=== PATIENT | male | born 1965 | race Caucasian/White ===

== ENCOUNTER 2019-12-26 07:29 | Outpatient (CLI) | payer OTHER, SELFPAY ==
--- NOTE | ~2019-12-26 | CT_ITS ---
EXAMINATION: CT abdomen pelvis w con DATE: 12/26/2019 08:30 INDICATION: Mid and upper abdominal pain. Nausea and vomiting. Acute pancreatitis. TECHNIQUE: Computed tomography (CT) of the abdomen and pelvis was performed with 100 mL Omnipaque 350 intravenous contrast. Automated exposure control and iterative reconstruction technique were employe d. The dose-length product was 1547.81 mGy-cm. COMPARISON: None. FINDINGS: The visualized portions of the lung bases are clear without pneumonia or pleural effusion. The heart size is normal. No pericardial effusion. There are coronary artery calcifications. The live r, gallbladder, and right adrenal gland are normal. There is a 2.6 cm mass in left adrenal gland lauren uring soft tissue attenuation. 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 There is fat stranding around the pancreas. There is a 2.4 x 1.5 cm fluid collection adjacent t o the body of the pancreas. There are calcifications in the uncinate process the pancreas. There are cysts in the kidneys measuring up to 1.6 cm on the left. There is prominent fat in the inguinal canal s that may be small hernias. There are surgical changes of the stomach. There are no dilated loops of bowel. The appendix is normal. There are no pathologically enlarged lymph nodes. There is no free in traperitoneal fluid. There is mild thoracolumbar spondylosis. There is mild chronic anterior wedging of T11 vertebral body. IMPRESSION: 1. Acute interstitial pancreatitis superimposed on chronic pancreatitis. A 2.4 x 1.5 cm fluid collect ion adjacent to the body of the pancreas may be an acute necrotic collection or pseudocyst. 2. 2.6 cm left adrenal mass. In the absence of known malignancy, this finding is likely an adenoma. Reviewed, dictated and finalized at location A. IMPRESSION: 1. Acute interstitial pancreatitis superimposed on chronic pancreatitis. A 2.4 x 1.5 cm fluid collection adjacent to the body of the pancreas may be an acute necrotic collection or pseudocyst. 2. 2.6 cm left adrenal mass. In the absence of known malignancy, this finding i s likely an adenoma.
[2019-12-26 07:56] LABS: Estimated Glomerular Filt Rate > 60
== END 2019-12-26 07:30 | disposition home or self-care (01) ==
PROVIDERS: PCP Internal Medicine; Visit Provider Internal Medicine
DX: K85.90 Acute pancreatitis without necrosis or infection, unspecified (principal)
CPT/HCPCS: 74177; Q9965

== ENCOUNTER 2021-07-16 08:57 | Emergency (ER) | payer OTHER, SELFPAY ==
--- NOTE | 2021-07-16 08:57 | ED.SKABFB ---
HPI - Skin/Abscess/Foreign Bdy General Chief complaint: Skin/Abscess/Foreign Body Stated complaint: Rash Time Seen by Provider: 07/16/21 08:57 Source: patient Mode of arrival: ambulatory Limitations: no limitations History of Present Illness HPI narrative: Mr. Suggs is a 56-year-old male patient presenting to the clinic today with complaints of rash to his face and left arm. He reports this rash began yesterday around 2 PM where he noticed around his left eye was itching and beginning to swell. Was out in the brush yesterday cleaning and thinks he may have gotten into some poison graciela. Related Data Allergies Allergy/AdvReac Type Severity Reaction Status Date / Time Penicillins Allergy Mild Rash Verified 07/16/21 09:11 Review of Systems Review of Systems: Pertinent positives per HPI. Patient denies any fever, chills, headache, visual changes, dizziness, cough, runny nose, sore throat, shortness of breath, chest pain, palpitations, nausea, vomiting, diarrhea, constipation, abdominal pain, or any urinary issues. PMFSH Comments At the time of my signature, I reviewed and agree with the nursing past medical, surgical, social, and family history. There is no relevant family history pertinent to the patient complaint. Exam Narrative: General: Well-developed, well nourished, in no apparent distress Head: Normocephalic, atraumatic. Cardio: Regular rate and rhythm, s1 and s2 normal, no murmur appreciated. Resp: Clear to auscultation bilaterally, no rhonchi, rales, wheezing or rubs. Integumentary: [place], warm, and dry, intact without lesion, red, raised, itchy, blistery like rash to the face and volar upper left arm. Swelling noted to bilateral cheeks with some periorbital edema around the eyes left greater than right as the left eye is almost swollen shut. Course Course Emergency Course: Portions of this record may have been created with voice recognition software. Level of Care: Express Care Visit Vital Signs Vital signs: Vital Signs Temperature 36.8 C 07/16/21 09:04 Pulse Rate 65 07/16/21 09:04 Respiratory Rate 20 07/16/21 09:04 Blood Pressure 145/85 H 07/16/21 09:04 Pulse Oximetry 100 07/16/21 09:04 Temperature 36.8 C 07/16/21 09:04 Pulse Rate 65 07/16/21 09:04 Respiratory Rate 20 07/16/21 09:04 Blood Pressure 145/85 H 07/16/21 09:04 Pulse Oximetry 100 07/16/21 09:04 Vital signs reviewed MDM - Skin/Abscess/Foreign Bdy MDM Narrative Medical decision making narrative: At the time of visit patient is resting comfortably on the exam table. He denies being in any respiratory distress and lung sounds are clear. I suspect that the patient has contact dermatitis due to poison graciela and will treat with a course of dexamethasone 10 mg IM that was given in the clinic as well as I will follow-up with a prescription for some prednisone and he was told to take Benadryl and an antihistamine such as Claritin or Zyrtec. Other supportive measures were discussed with patient he voiced understanding of discharge instructions and agrees to treatment plan. Differential Diagnosis Differential diagnosis: Likely urticaria, herpes zoster, allergic reaction to drug, cellulitis, eczema and contact dermatitis Discharge Plan Discharge Clinical Impression: Allergic contact dermatitis due to plant Patient Disposition: Home, Self-Care Condition: Stable Instructions: Poison Graciela (ED), Cold Compress or Soak (ED) Additional Instructions: Dexamethasone 10 mg IM given in the clinic today May take 1-2 caps of Benadryl every 6 hours as needed for itching or swelling Prednisone 40 mg daily x5 days. Follow-up with your PCP in 3 to 5 days if symptoms persist or sooner if they worsen Prescriptions: New prednisone 20 mg tablet 40 mg PO DAILY 5 Days Qty: 10 RF: 0 Follow-up/Referrals: UNKNOWN,DOCTOR [Non-Staff] - Time of Disposition: 09:14 Quality NIHSS Nursing Documentation ED NIHSS
[2021-07-16 09:04] VITALS: BP 145/85; PULSE 65; RESP 20; TEMP 36.8; O2SAT 100
== END 2021-07-16 09:45 | disposition home or self-care (01) ==
PROVIDERS: Emergency Provider Nurse Practitioner Family
DX: L23.7 Allergic contact dermatitis due to plants, except food (principal); Z98.84 Bariatric surgery status
CPT/HCPCS: 96372; 99213; G0463; J1100